=== PATIENT | female | born 1995 | race Two or more races ===

== ENCOUNTER → 2019-06-17 | Outpatient (CLI) | payer OTHER ==
--- NOTE | 2019-06-17 11:05 | USB ---
Reason for exam: clinical finding. Physical Findings: Nurse did not find any significant physical abnormalities on exam. US Breast LT Left complete breast ultrasound includes all four quadrants, the retroareolar region and axilla. Finding demonstrates a 6 x 5 x 4mm oval, cystic lesion at 1 o'clock. These results were verbally communicated with the patient and result sheet given to the patient on 06/17/19. ASSESSMENT: Benign, BI-RAD 2 RECOMMENDATION: Clinical management of the left breast. Manage patient on a clinical basis.
== END | disposition home or self-care (01) ==
LOC: RADUSWWP 10:15
DX: N64.4 Mastodynia (principal)

== ENCOUNTER → 2021-02-17 | Outpatient (CLI) | payer OTHER ==
--- NOTE | 2021-02-17 15:51 | US ---
EXAMINATION TYPE: US abdomen complete DATE OF EXAM: 02/17/2021 COMPARISON: NONE CLINICAL HISTORY: R10.31 RLQ Abd pain, R94.5 Elevated LFT's. EXAM MEASUREMENTS: Liver Length: 14.2 cm Gallbladder Wall: 0.2 cm CBD: 0.4 cm Spleen: 9.2 cm Right Kidney: 10.6 x 3.4 x 4.2 cm Left Kidney: 10.5 x 5.1 x 4.8 cm Pancreas: Tail obscured by overlying bowel gas Liver: wnl Gallbladder: wnl Evidence for sonographic Reyes's sign: no CBD: wnl Spleen: wnl Right Kidney: No hydronephrosis or masses seen Left Kidney: No hydronephrosis or masses seen, somewhat obscure by bowel gas Upper IVC: wnl Abd Aorta: wnl IMPRESSION: 1. The tail of the pancreas obscured due to overlying bowel gas. 2. Left kidney is partially obscured due to overlying bowel gas. 3. No intrahepatic biliary dilatation or discrete hepatic mass is seen. 4. No gallstones, sludge, or pericholecystic fluid. Gallbladder wall is within normal limits. Common duct is within normal limits. 5. No hydronephrosis or shadowing renal calculi are seen.
--- NOTE | 2021-02-17 17:09 | US ---
EXAMINATION TYPE: US pelvis complete transvag DATE OF EXAM: 02/17/2021 COMPARISON: NONE CLINICAL HISTORY: R10.31 RLQ Abd pain, R94.5 Elevated LFT's. TECHNIQUE: Transvaginal (TV) and Transabdominal (TA) . Transabdominal sonographic images of the pel vis were acquired. Transvaginal sonographic images were medically necessary to better assess the fol lowing anatomy EXAM MEASUREMENTS: Uterus: 6.8 x 2.2 x 4.6 cm Endometrial Stripe: 0.2 cm Right Ovary: 4.0 x 1.4 x 2.3 cm Left Ovary: 4.4 x 1.2 x 1.2 cm Bilateral tiny ovarian follicles are seen. No free fluid in the cul-de-sac. Endometrial thickness is within normal limits. 1. Uterus: Anteverted wnl 2. Endometrium: wnl 3. Right Ovary: wnl 4. Left Ovary: wnl 5. Bilateral Adnexa: wnl 6. Posterior cul-de-sac: wnl no free fluid. IMPRESSION: 1. Unremarkable sonographic study of the pelvis.
== END | disposition home or self-care (01) ==
LOC: RADUSWWP 09:35
PROVIDERS: ATTEND Internal Medicine
DX: R10.31 Right lower quadrant pain (principal); R94.5 Abnormal results of liver function studies
CPT/HCPCS: 76700; 76830; 76856